=== PATIENT | female | born 1970 | race Caucasian/White ===

== ENCOUNTER 2024-06-04 09:41 | Emergency (ER) | payer OTHER ==
[~2024-06-04] VITALS: Ht 162.6 cm; Wt 68.2 kg
[~2024-06-04 09:41] MED LIST: CYCL-448 PO; IBUP-45 PO; INSLAN SQ; INSNOV SQ
[2024-06-04 09:49] VITALS: TEMP 98
[2024-06-04] MEDS ORDERED: METH2.5T47 PO (09:49)
[2024-06-04] MEDS ORDERED: INSU100V SQ (09:49)
[2024-06-04] MEDS ORDERED: INSLAN SQ (09:49)
[2024-06-04 10:25] LABS: GLUCOMETER DEV NAME(LOC) ER.7; GLUCOSE,POINT OF CARE 148 MG/DL (70-110)
[2024-06-04 11:35] VITALS: BP 129/82; PULSE 72; RESP 16; O2SAT 99
== END 2024-06-04 12:35 | disposition home or self-care (01) ==
LOC: EMS 09:41
DX: T38.3X1A Poisoning by insulin and oral hypoglycemic [antidiabetic] drugs, accidental (unintentional), initial encounter (principal); E10.649 Type 1 diabetes mellitus with hypoglycemia without coma; Z79.4 Long term (current) use of insulin; X58.XXXA Exposure to other specified factors, initial encounter
CPT/HCPCS: 82962; 99282